=== PATIENT | female | born 1980 | race American Indian/Alaskan Native ===

== ENCOUNTER 2016-04-17 04:23 | Emergency (ER) | payer SELFPAY ==
[2016-04-17 04:42] VITALS: BP 132/78
--- NOTE | 2016-04-17 07:25 | Emergency Department Report ---
ED Chest Pain HPI - General Chief Complaint: Upper Respiratory Infection Stated Complaint: CHEST PAIN Time Seen by Provider: 04/17/16 07:15 Source: patient, family Mode of arrival: Ambulatory Limitations: No Limitations - History of Present Illness Initial Comments: Patient here complaining in of chest hurting when she moves, or bruit. She says she has a nonproductive cough. Denies any fever or chills. She is complaining of headache and body aches. No nausea vomiting. Patient has no medical history. Denies any previous history of chest pain. Patient said chest pain has been going on and off for 3 days. She reports she's been coughing for one day. She denies any fever or chills. No [id number] medication taken. He reports that the pain radiates to her back. Pain is 10 out of 10 and headache is 8 out of 10. MD Complaint: chest pain Onset/Timin -: days(s) Onset: during rest, during exertion Pain Location: right chest Pain Radiation: back Severity: severe Severity scale (0 -10): 10 Quality: tightness Consistency: intermittent Improves With: nothing Worsens With: nothing Context: other (none) re: denies: nausea, vomting, diaphoresis, dyspnea, sense of impending doom Other Symptoms: cough. denies: fever, syncope, rash, acid taste in mouth, leg swelling, palpitations, burping Treatments Prior to Arrival: none Aspirin use within the Past 7 Days: (0) No - Related Data On Oral Contraceptives: No Previous Rx's Medication Instructions Recorded Last Taken Type Sulfamethoxazole/Trimethoprim 1 each PO BID #6 tablet 02/25/15 Unknown Rx [Bactrim DS TAB] Brompheniramine/Pseudoephed/Dm 10 ml PO BID PRN #70 syrup 04/17/16 Unknown Rx [Bromfed Dm Cough Syrup] Fluticasone [Flonase] 1 spray NS QDAY #1 bottle 04/17/16 Unknown Rx Ibuprofen [Motrin] 600 mg PO Q8H PRN #15 tablet 04/17/16 Unknown Rx Allergies Allergy/AdvReac Type Severity Reaction Status Date / Time No Known Allergies Allergy Verified 02/25/15 03:31 LAVON score - Lavon Score Age > 65: (0) No Aspirin use within the Past 7 Days: (0) No 3 or more CAD Risk Factors: (0) No 2 or more Angina events in past 24 hrs: (0) No Known CAD with more than 50% Stenosis: (0) No Elevated Cardiac Markers: (0) No ST Deviation Greater than 0.5mm: (0) No LAVON Score: 0 ED Review of Systems ROS: Stated complaint: CHEST PAIN Other details as noted in HPI Comment: All other systems reviewed and negative Constitutional: denies: chills, fever ENT: denies: ear pain, throat pain, congestion Respiratory: cough. denies: shortness of breath, SOB with exertion, SOB at rest , stridor, wheezing Cardiovascular: chest pain. denies: palpitations, edema, syncope Gastrointestinal: denies: abdominal pain, nausea, vomiting, diarrhea Skin: denies: rash Neurological: headache. denies: weakness, numbness, paresthesias, confusion, abnormal gait, vertigo ED Past Medical Hx - Past Medical History Previous Medical History?: No - Surgical History Past Surgical History?: Yes Additional Surgical History: CS X 2 - Family History Family history: no significant - Social History Smoking Status: Current Every Day Smoker Substance Use Type: Alcohol - Medications Home Medications: Home Medications Medication Instructions Recorded Confirmed Last Taken Type Sulfamethoxazole/Trimethoprim 1 each PO BID #6 tablet 02/25/15 Unknown Rx [Bactrim DS TAB] Brompheniramine/Pseudoephed/Dm 10 ml PO BID PRN #70 syrup 04/17/16 Unknown Rx [Bromfed Dm Cough Syrup] Fluticasone [Flonase] 1 spray NS QDAY #1 bottle 04/17/16 Unknown Rx Ibuprofen [Motrin] 600 mg PO Q8H PRN #15 tablet 04/17/16 Unknown Rx ED Physical Exam - General Limitations: No Limitations General appearance: alert, in no apparent distress - Head Head exam: Present: atraumatic, normocephalic, normal inspection - Eye Eye exam: Present: normal appearance, PERRL, EOMI. Absent: nystagmus, periorbital swelling, periorbital tenderness Pupils: Present: normal accommodation - ENT ENT exam: Present: normal orophraynx, normal external ear exam, other ( bilateral nasal mucosa pale and boggy). Absent: TM's normal bilaterally ( bilateral TMs congested without erythema) - Neck Neck exam: Present: normal inspection, full ROM. Absent: tenderness, meningismus, lymphadenopathy - Respiratory Respiratory exam: Present: normal lung sounds bilaterally, chest wall tenderness. Absent: respiratory distress, wheezes, rales, rhonchi, stridor, accessory muscle use, decreased breath sounds, prolonged expiratory - Cardiovascular Cardiovascular Exam: Present: regular rate, normal rhythm, normal heart sounds. Absent: systolic murmur, diastolic murmur, JVD, S3, S4 - Expanded Cardiovascular Exam Expanded Peripheral pulses: 2+: Radial (R), Radial (L), Posterior Tibialis (R), Posterior Tibialis (L), Dorsalis Pedis (R), Dorsalis Pedis (L) - GI/Abdominal GI/Abdominal exam: Present: soft, normal bowel sounds. Absent: distended, tenderness, guarding, rebound, rigid - Extremities Exam Extremities exam: Present: normal inspection, full ROM, normal capillary refill. Absent: tenderness, pedal edema, joint swelling, calf tenderness - Back Exam Back exam: Present: normal inspection. Absent: full ROM, tenderness, CVA tenderness (R), CVA tenderness (L), muscle spasm, paraspinal tenderness, vertebral tenderness, rash noted - Neurological Exam Neurological exam: Present: alert, oriented X3, normal gait, reflexes normal. Absent: motor sensory deficit - Psychiatric Psychiatric exam: Present: normal affect, normal mood - Skin Skin exam: Present: warm, dry, intact, normal color. Absent: rash ED Course Vital Signs 04/17/16 04:34 Temperature 98.4 F Pulse Rate 77 Respiratory 18 Rate Blood Pressure 132/78 O2 Sat by Pulse 97 Oximetry - Reevaluation(s) Reevaluation #1: 04/17/16 09:06 Patient had an uneventful ED stay 04/17/16 09:09 ED Medical Decision Making - Lab Data Result diagrams: 04/17/16 07:30 04/17/16 07:30 Lab Results 04/17/16 04/17/16 Range/Units 07:30 07:30 WBC 9.7 (4.5-11.0) K/mm3 RBC 4.84 (3.65-5.03) M/mm3 Hgb 13.0 (10.1-14.3) gm/dl Hct 40.7 (30.3-42.9) % MCV 84 (79-97) fl MCH 27 L (28-32) pg MCHC 32 (30-34) % RDW 14.3 (13.2-15.2) % Plt Count 239 (140-440) K/mm3 Lymph % (Auto) 35.4 H (13.4-35.0) % [place] % (Auto) 12.9 H (0.0-7.3) % Eos % (Auto) 1.6 (0.0-4.3) % Baso % (Auto) 0.6 (0.0-1.8) % Lymph # 3.4 (1.2-5.4) K/mm3 [place] # 1.3 H (0.0-0.8) K/mm3 Eos # 0.2 (0.0-0.4) K/mm3 Baso # 0.1 (0.0-0.1) K/mm3 Seg Neutrophils % 49.5 (40.0-70.0) % Seg Neutrophils # 4.8 (1.8-7.7) K/mm3 Sodium 139 (137-145) mmol/L Potassium 4.0 (3.6-5.0) mmol/L Chloride 100.9 (98-107) mmol/L Carbon Dioxide 24 (22-30) mmol/L Anion Gap 18 mmol/L BUN 12 (7-17) mg/dL Creatinine 0.6 L (0.7-1.2) mg/dL Estimated GFR > 60 ml/min BUN/Creatinine Ratio 20.00 % Glucose 136 H (65-100) mg/dL Calcium 9.1 (8.4-10.2) mg/dL Troponin T < 0.010 (0.00-0.029) ng/mL - EKG Data -: EKG Interpreted by De EKG shows normal: sinus rhythm - EKG Data Interpretation: no acute changes - Radiology Data Radiology results: report reviewed Chest x-ray revealed bibasilar subsegmental atelectasis otherwise normal - Medical Decision Making ED course: Patient with atypical chest pain, cough and upper respiratory infection. She is also with costochondritis. Discussed with patient her diagnosis and treatment plan and she is in agreement. Discussed with her that she should follow-up with a merchandise director for further testing. Patient lab work reveals no acute findings. Chest x-ray shows atelectasis bibasilar. Discussed the patient that she needs to take deep breaths and cough every 2-3 hours. Condition discharged home with prescription for Bromfed-DM , Flonase and Motr Critical care attestation.: If time is entered above; I have spent that time in minutes in the direct care of this critically ill patient, excluding procedure time. ED Disposition Clinical Impression: Atypical chest pain, Costochondritis, Cough, Atelectasis of both lungs Upper respiratory tract infection Qualifiers: URI type: unspecified URI Qualified Code(s): J06.9 - Acute upper respiratory infection, unspecified Disposition: DISCHARGED TO HOME OR SELFCARE Is pt being admited?: No Does the pt Need Aspirin: No Condition: Stable Instructions: Chest Pain (ED), Costochondritis (ED), Upper Respiratory Infection (ED), Acute Cough (ED) Additional Instructions: Your chest x-ray shows that her lung bases are not fully expanded ,Deep breathe and cough every 2-3 hours take medication as prescribed Prescriptions: Brompheniramine/Pseudoephed/Dm [Bromfed Dm Cough Syrup] 10 ml PO BID PRN #70 syrup PRN Reason: Cough Fluticasone [Flonase] 1 spray NS QDAY #1 bottle Ibuprofen [Motrin] 600 mg PO Q8H PRN #15 tablet PRN Reason: Pain Referrals: PRIMARY CARE, [Primary Care Provider] - 24 Hours MARGO ARROYO MD [Staff Physician] - 24 Hours Forms: Accompanied Note, Work/School Release Form(ED)
[2016-04-17 07:45] LABS: Basophils % (Auto) 0.6 % (0.0-1.8); Eosinophils % (Auto) 1.6 % (0.0-4.3); Hematocrit 40.7 % (30.3-42.9); Mean Corpuscular HGB Conc 32 % (30-34); Mean Corpuscular Hemoglobin 27 pg (28-32); Mean Corpuscular Volume 84 fl (79-97); Platelet Count 239 K/mm3 (140-440); Red Blood Count 4.84 M/mm3 (3.65-5.03); Red Cell Distribution Width 14.3 % (13.2-15.2); White Blood Count 9.7 K/mm3 (4.5-11.0)
[2016-04-17 07:58] LABS: Anion Gap 18 mmol/L; Blood Urea Nitrogen 12 mg/dL (7-17); Calcium 9.1 mg/dL (8.4-10.2); Carbon Dioxide 24 mmol/L (22-30); Chloride 100.9 mmol/L (98-107); Glucose 136 mg/dL (65-100); Sodium 139 mmol/L (137-145)
--- NOTE | 2016-04-17 08:24 | XRay Report ---
CHEST TWO VIEWS: 04/17/16 07:54 CLINICAL: Chest pain. COMPARISON: None FINDINGS: Normal heart and pulmonary vasculature. Bibasal streaky lung opacities. No pulmonary dislocation. No pleural effusion.The bones and soft tissues are normal. IMPRESSION: Bibasal subsegmental atelectasis and otherwise normal.
== END 2016-04-17 09:21 | disposition home or self-care (01) ==
LOC: ED 04:23
DX: M94.0 Chondrocostal junction syndrome [Tietze] (principal); J98.11 Atelectasis; J06.9 Acute upper respiratory infection, unspecified; R51 Headache; F17.200 Nicotine dependence, unspecified, uncomplicated
CPT/HCPCS: 36415; 71020; 80048; 84484; 85025; 93005; 93010; 99285